=== PATIENT | male | born 1965 | race Caucasian/White ===

== ENCOUNTER 2017-10-18 16:48 | Emergency (ER) | payer OTHER ==
[~2017-10-18 16:48] MED LIST: HYDROCHLOROTH12.5 MG PO; KLONOPIN1 M1 PO; LEXAPRO10 MG PO
[2017-10-18 17:21] LABS: BASOPHIL COUNT 0.1 K/uL (0-0.1); EOSINOPHIL (%) 1.3 % (0-5); EOSINOPHIL COUNT 0.2 K/uL (0-0.3); HEMATOCRIT 45.8 % (38.0-50.0); IMMATURE GRANULOCYTE (%) 1.6 % (0.0-0.7); IMMATURE GRANULOCYTE COUNT 0.2 K/uL; INSTRUMENT ABS NEUTROPHIL CT 8.8 K/uL; LYMPHOCYTE COUNT 4.6 K/uL (1.0-2.8); MCH 27.9 PG (29.0-34.0); MCV 84.7 FL (86-99); MEAN PLAT.VOLUME 8.7 uM^3 (9.0-12.4); MONOCYTE (%) 6.1 % (3-12); MONOCYTE COUNT 0.9 K/uL (0-0.8); NEUTROPHIL (%) 59.4 % (45-76); NEUTROPHIL COUNT 8.8 K/uL (1.8-6.4); PLATELET COUNT 320 K/uL (156-360); RBC DIS.WIDTH-CV 13.2 % (11.8-14.6); RED BLOOD COUNT 5.41 M/uL (4.00-5.50); WHITE BLOOD COUNT 14.8 K/uL (4.1-10.2)
[2017-10-18 17:33] LABS: AMYLASE 50 IU/L (1-118); CHLORIDE 100 mEq/L (99-109); POTASSIUM 3.3 mEq/L (3.7-5.4); SODIUM 140 mEq/L (136-147)
[2017-10-18 17:35] LABS: GLUCOSE 119 mg/dL (70-99)
[2017-10-18 17:36] LABS: ANION GAP 14 MEQ/L (2-14)
[2017-10-18 17:38] LABS: SERUM ETHYL ALCOHOL < 10 mg/dL
[2017-10-18 17:39] LABS: GFR ESTIMATE (CALCULATED) > 59 mL/min/; UREA NITROGEN (BUN) 17 mg/dL (9-23)
[2017-10-18 17:42] LABS: LIPASE 36 U/L (1.0-51.0)
== END 2017-10-18 21:54 | disposition short-term general hospital (02) ==
LOC: EDBD 16:48 → TRA 16:48
PROVIDERS: Emergency Medicine
DX: S72.91XA Unspecified fracture of right femur, initial encounter for closed fracture (principal); S36.899A Unspecified injury of other intra-abdominal organs, initial encounter; T14.8XXA Other injury of unspecified body region, initial encounter; E27.9 Disorder of adrenal gland, unspecified; S20.319A Abrasion of unspecified front wall of thorax, initial encounter; S30.811A Abrasion of abdominal wall, initial encounter; V57.1XXA Passenger in pick-up truck or van injured in collision with fixed or stationary object in nontraffic accident, initial encounter; Z87.820 Personal history of traumatic brain injury; I10 Essential (primary) hypertension; G40.909 Epilepsy, unspecified, not intractable, without status epilepticus
CPT/HCPCS: 70450; 70486; 71010; 71260; 72125; 72129; 72132; 73552; 74177; 80048; 81003; 82150; 83690; 85025; 86850; 86900; 86901; 99281; 99285; G0480; J2270; J2405; J3010

== ENCOUNTER 2018-02-25 01:49 | Emergency (ER) | payer OTHER ==
[~2018-02-25] VITALS: Ht 170.2 cm; Wt 78.3 kg
[2018-02-25 03:01] VITALS: BP 155/93
== END 2018-02-25 03:01 | disposition home or self-care (01) ==
LOC: EME 01:49
DX: K94.03 Colostomy malfunction (principal)
CPT/HCPCS: 99281; 99283